=== PATIENT | male | born 1940 | race Caucasian/White ===

== ENCOUNTER 2017-09-25 07:25 | Day surgery (SDC) | payer MEDICARE, BC ==
[2017-09-25] MEDS: NS 1,000 ML IV (07:30)
[2017-09-25] MEDS ORDERED: LIDOCAINE 2% INJ 100 MG/5 ML SDV (FOR ANES.) As Ordered (08:09)
[2017-09-25] MEDS ORDERED: PROPOFOL 200 MG/20 ML VIAL As Ordered ×2 (08:09→08:27)
[2017-09-25] MEDS ORDERED: ePHEDrine INJ 50 MG/ML VIAL As Ordered (08:29)
== END 2017-09-25 09:35 | disposition home or self-care (01) ==
LOC: M OPP 07:25
DX: Z12.11 Encounter for screening for malignant neoplasm of colon (principal); Z86.010 Personal history of colon polyps; D12.2 Benign neoplasm of ascending colon; D12.4 Benign neoplasm of descending colon; K64.0 First degree hemorrhoids; K57.30 Diverticulosis of large intestine without perforation or abscess without bleeding; I10 Essential (primary) hypertension; E78.5 Hyperlipidemia, unspecified; M10.9 Gout, unspecified; N40.1 Benign prostatic hyperplasia with lower urinary tract symptoms; I34.0 Nonrheumatic mitral (valve) insufficiency; Z88.8 Allergy status to other drugs, medicaments and biological substances; Z79.82 Long term (current) use of aspirin; Z79.899 Other long term (current) drug therapy
CPT/HCPCS: 45385

== ENCOUNTER 2019-01-15 12:33 | Emergency (ER) | payer MEDICARE, BC ==
[~2019-01-15] VITALS: Ht 170.2 cm; Wt 76.2 kg
[~2019-01-15 12:33] MED LIST: ASPI81TA85 PO; ATOR1TAB19 PO; FINA5TAB2 PO; LISI-542 PO; METO50TA7 PO; TERA10CA3 PO; TRIA37.5 PO; VITA-182 PO; ZYLO300T6 PO
[2019-01-15 12:34] VITALS: BP 149/70
[2019-01-15] MEDS ORDERED: DOXYCYCLINE HYCLATE 100 MG TAB PO ONE (13:30)
[2019-01-17 17:14] LABS: Lyme Disease IgG/IgM Antibodie <0.91 ISR (0.00-0.90); Lyme Disease IgM Ab Quantitati <0.80 index (0.00-0.79)
== END 2019-01-15 13:50 | disposition home or self-care (01) ==
LOC: M ED 12:33
DX: S40.862A Insect bite (nonvenomous) of left upper arm, initial encounter (principal); W57.XXXA Bitten or stung by nonvenomous insect and other nonvenomous arthropods, initial encounter; Y92.9 Unspecified place or not applicable; Y93.9 Activity, unspecified; Y99.9 Unspecified external cause status; I10 Essential (primary) hypertension; Z79.82 Long term (current) use of aspirin; Z79.899 Other long term (current) drug therapy; Z88.8 Allergy status to other drugs, medicaments and biological substances